=== PATIENT | female | born 1965 | race Caucasian/White ===

== ENCOUNTER 2017-02-20 08:05 | Day surgery (SDC) | payer BC, OTHER ==
[~2017-02-20] VITALS: Ht 165.1 cm; Wt 102.1 kg
[~2017-02-20 08:05] MED LIST: ALPR1TAB2 PO; ASPI1TAB30 PO; IV RINGERS,LACTATED 1000ML 1,000 ML IV SCH; LIDOCAINE 1% 1 ML SYRINGE. ID PRN; ONDANSETRON PF 4 MG/2 ML VIAL. IV PRN; OXYC-323 PO; PROCHLORPERAZINE 10 MG/2 ML VIAL. IV PRN; fentaNYL PF VIAL 100 MCG/2 ML VIAL IV PRN
[2017-02-20] MEDS ORDERED: BUPIVACAINE-EPI 0.25%-1:200000 50 ML VIAL. ONE (08:38)
[2017-02-20] MEDS ORDERED: HYDROmorphone 2 MG/ML VIAL ONE ×2 (09:09→12:16)
[2017-02-20] MEDS ORDERED: MIDAZOLAM HCL/PF 2 MG/2 ML VIAL. ONE (09:10)
[2017-02-20] MEDS ORDERED: ROCURONIUM 50 MG/5 ML VIAL. ONE (09:10)
[2017-02-20] MEDS ORDERED: ONDANSETRON PF 4 MG/2 ML VIAL. ONE (09:47)
[2017-02-20] MEDS ORDERED: DEXAMETHASONE SOD PHOS 20 MG/5 ML VIAL. ONE (09:47)
[2017-02-20] MEDS ORDERED: DESFLURANE 61 TO 120 MINUTES IH ONE (09:47)
[2017-02-20] MEDS ORDERED: PROPOFOL 20 ML IV ONE ×2 (09:47)
[2017-02-20] MEDS ORDERED: LIDOCAINE 1% PF 5 ML VIAL. ONE (09:47)
[2017-02-20] MEDS ORDERED: SEVOFLURANE > 120 MINUTES. IH ONE (09:48)
[2017-02-20] MEDS ORDERED: NEOSTIGMINE METHYLSULFATE 5 MG/5 ML SYRINGE. ONE (09:51)
[2017-02-20] MEDS ORDERED: GLYCOPYRROLATE 1 MG/5 ML VIAL. ONE (09:51)
[2017-02-20] MEDS ORDERED: ePHEDrine PF IN SALINE 50 MG/5 ML DISP.SYRIN IV ONE (09:57)
--- NOTE | 2017-02-20 12:01 | PDOC4 ---
Operative Note Operative Note Preoperative diagnosis: Incarcerated ventral hernia 2 Postoperative diagnosis: Incarcerated ventral hernia 3 Procedure: Robotic-assisted laparoscopic ventral hernia repair with mesh Surgeon: Td Anesthesia: GETA Estimated blood loss: 20 mL Specimen: None Procedure: Patient is a 51-year-old female with abdominal pain CT scan showing 2 ventral hernias. The procedure for ventral hernia repair robotic-assisted laparoscopic was explained to the patient detail all risks and benefits were also discussed including bleeding and/or infection as well as injury to intra- abdominal contents which were possibly necessitate further operations. The patient seemed understanding able verbal and written consent have procedure performed. Patient was taken to the operating room placed in the supine position general anesthesia was initiated once patient was sleeping and abated her abdomen was prepped and draped using sterile fashion using ChloraPrep. An area in the left upper quadrant was injected with quarter percent Marcaine with epinephrine incision was made lead blade scalpel and a Visiport was placed under direct visualization pneumoperitoneum was achieved. Once this was complete 5 mm camera was placed within the abdomen and the abdomen was inspected. Was noted that she had 3 ventral hernias all incarcerated with omentum. At this point 3 8 mm da Radha ports were placed under direct visualization. Surgery went to the robotic console using grasper and Endo Daniel scissors the omentum was reduced from all of the ventral hernias as well as adhesions taken down. The hernia defects were all closed with 2-0 the Lock nonabsorbable suture. Phasix mesh was used to cover the hernia defects this was sewn into place with 2-0 the lock absorbable suture. Once this was complete all ports removed and the pneumoperitoneum was reduced the skin incisions were all closed with 4-0 Monocryl subcuticular stitch mass all Steri-Strips as dressing. Patient was waken expanded operative technique and recovery in stable condition all sponges and needle counts listed as correct. Date: 02/20/2017 JOSE WEBB MD Feb 20, 2017 12:01
--- NOTE | 2017-02-20 12:06 | DISCH ---
DISCHARGE INSTRUCTIONS Condition on Discharge Condition on Discharge: Stable Activity After Discharge Activity Instructions for Disc: Avoid exertion Other activity instructions: No lifting >20lbs for 2 weeks Diet after Discharge Diet after Discharge: Regular Wound Incision Care Other wound/incision instructi: May shower in 24 hours Contacting the after DC Call your doctor for: If your condition worsens Follow-Up Follow up with: Dr Webb in 2 weeks JOSE WEBB MD Feb 20, 2017 12:06
[2017-02-20] MEDS: HYDROmorphone 2 MG/ML VIAL IV PRN ×4 (12:20→12:51)
[2017-02-20] MEDS ORDERED: oxyCODONE/APAP 5/325 1 TAB TABLET PO PRN (12:45)
[2017-02-20] MEDS ORDERED: HYDROmorphone 2 MG/ML VIAL IV PRN (13:30)
[2017-02-20 13:50] VITALS: BP 121/73
== END 2017-02-20 14:01 | disposition home or self-care (01) ==
LOC: SURG 08:05
PROVIDERS: ATTEND Surgery
DX: K43.6 Other and unspecified ventral hernia with obstruction, without gangrene (principal); I10 Essential (primary) hypertension; J44.9 Chronic obstructive pulmonary disease, unspecified; J45.909 Unspecified asthma, uncomplicated; Z90.49 Acquired absence of other specified parts of digestive tract; K21.9 Gastro-esophageal reflux disease without esophagitis; Z87.442 Personal history of urinary calculi; Z87.39 Personal history of other diseases of the musculoskeletal system and connective tissue; F41.9 Anxiety disorder, unspecified; D64.9 Anemia, unspecified; Z72.0 Tobacco use; Z88.1 Allergy status to other antibiotic agents; Z88.8 Allergy status to other drugs, medicaments and biological substances
CPT/HCPCS: 49653; C1781; J1100; J1170; J2250; J2405; J2704; J2710; J3490; J0780

== ENCOUNTER → 2017-10-15 | Outpatient (CLI) | payer BC ==
[~2017-10-15] MED LIST changes: -ALPR1TAB2 PO; -ASPI1TAB30 PO; +IOHEXOL 180 MG/ML 10 ML VIAL.; -IV RINGERS,LACTATED 1000ML 1,000 ML IV SCH; -LIDOCAINE 1% 1 ML SYRINGE. ID PRN; -ONDANSETRON PF 4 MG/2 ML VIAL. IV PRN; -OXYC-323 PO; -PROCHLORPERAZINE 10 MG/2 ML VIAL. IV PRN; -fentaNYL PF VIAL 100 MCG/2 ML VIAL IV PRN; +methylPREDNISolone ACETATE 40 MG/ML VIAL.; +methylPREDNISolone ACETATE 80 MG/ML VIAL.
== END | disposition home or self-care (01) ==
LOC: PNCL 07:29
DX: M51.16 Intervertebral disc disorders with radiculopathy, lumbar region (principal); M54.12 Radiculopathy, cervical region; I10 Essential (primary) hypertension; J45.909 Unspecified asthma, uncomplicated; Z90.49 Acquired absence of other specified parts of digestive tract; K21.9 Gastro-esophageal reflux disease without esophagitis; Z90.710 Acquired absence of both cervix and uterus; F41.0 Panic disorder [episodic paroxysmal anxiety]; F41.9 Anxiety disorder, unspecified; F17.210 Nicotine dependence, cigarettes, uncomplicated; D64.9 Anemia, unspecified
CPT/HCPCS: 62323; J1030; J1040; Q9965

== ENCOUNTER → 2017-10-23 | Outpatient (CLI) | payer BC | END | disposition home or self-care (01) | LOC: MRI 14:27 | DX: M51.16 Intervertebral disc disorders with radiculopathy, lumbar region (principal); M48.061 Spinal stenosis, lumbar region without neurogenic claudication | CPT/HCPCS: 72148 ==

== ENCOUNTER → 2017-10-29 | Outpatient (CLI) | payer BC | LOC: PNCL 08:44 | DX: M51.16 Intervertebral disc disorders with radiculopathy, lumbar region (principal); M50.10 Cervical disc disorder with radiculopathy, unspecified cervical region; Z88.1 Allergy status to other antibiotic agents; Z88.8 Allergy status to other drugs, medicaments and biological substances; Z88.5 Allergy status to narcotic agent; Z79.899 Other long term (current) drug therapy; Z79.82 Long term (current) use of aspirin | CPT/HCPCS: 62323; J1030; J1040; Q9965 ==

== ENCOUNTER → 2017-12-25 | Outpatient (CLI) | payer BC, MEDICARE | END | disposition home or self-care (01) | LOC: US 12:44 | DX: I65.23 Occlusion and stenosis of bilateral carotid arteries (principal); R09.89 Other specified symptoms and signs involving the circulatory and respiratory systems | CPT/HCPCS: 93880 ==

== ENCOUNTER → 2018-04-21 | Outpatient (CLI) | payer BC ==
[2018-01-23 11:00] VITALS: BP 105/54
[~2018-04-21] MED LIST changes: +ALPR1TAB2 PO; +ASPI-612 PO; +ASPI1TAB31 PO; +HYDR-2762 PO; +IBUP-1060 PO; -IOHEXOL 180 MG/ML 10 ML VIAL.; +IOHEXOL 180 MG/ML 10 ML VIAL. ONE; +LIDOCAINE 2% PF 2ML VIAL. ONE; +METO25TA4 PO; +OXYC-323 PO; +PROAIR HFA8.5 GM INH; +Pantoprazole PO; -methylPREDNISolone ACETATE 40 MG/ML VIAL.; +methylPREDNISolone ACETATE 40 MG/ML VIAL. ONE; -methylPREDNISolone ACETATE 80 MG/ML VIAL.; +methylPREDNISolone ACETATE 80 MG/ML VIAL. ONE
--- NOTE | 2018-04-21 22:49 | PAIN ---
DATE OF SERVICE: 04/21/2018 DIAGNOSES: 1. Lumbar radiculopathy with lumbar degenerative disk disease. 2. Cervicalgia with cervical radiculopathy. HISTORY OF PRESENT ILLNESS: The patient is a 53-year-old female, who returns for followup status post lumbar epidural steroid injection x 2, last seen 10/29/2017. The patient reports she did very well with this with about 98% improvement until about 6-7 weeks ago, patient reports pain began to return in the low back, bilateral lower extremities, somewhat worse on the right than the left and the right posterior gluteus, posterior thighs, posterior calves bilaterally, again worse on the right side, some in the anterior thigh as well. The patient reports it is a 10 on a scale of 10 at its worst, 9 on average, 8 at its least, and is a 9 today. The patient reports no new motor or sensory deficits. No new bowel or bladder incontinence, but still significant pain in the low back and bilateral lower extremities. The patient reports it is aching, sharp, shooting, stabbing, burning, becoming more constant, more severe and more unbearable, worse with walking, standing, changing positions, better with sitting down or lying down. She initially was increasing her distances walking, better activity with household and work activities, better tolerances with the activity without difficulty. The patient reports she is sleeping well at night, now is beginning to awaken her again from sleep. PHYSICAL EXAMINATION: VITAL SIGNS: The patient's blood pressure is 149/105, pulse 75, respirations 18, temperature 98.2 degrees Fahrenheit, height is 5 feet 5 inches, weight is 232 pounds. GENERAL: The patient is awake, alert, oriented, appropriate, very pleasant demeanor. HEENT: Shows normocephalic, atraumatic. Extraocular movements are intact and symmetrical. Oral cavity: Mucous membranes moist and pink. Dentition is intact. NECK: Shows anterior throat supple without palpable lymphadenopathy noted. Swallow reflex is symmetrical. Neck shows full rotational motion of the cervical spine without difficulty. CHEST: Shows normal on inspection. Breath sounds are clear to auscultation bilaterally. HEART: Shows S1, S2 clear. No murmurs auscultated. ABDOMEN: Soft, nontender, nondistended. No palpable organomegaly. There is no rebound or guarding demonstrated. BACK: Shows spine grossly in the midline. Normal appearing thoracic kyphosis and lumbar lordotic curvature. The patient's lumbar paraspinous muscle shows symmetrical on inspection. On palpation shows some moderate tenderness diffusely in the inferior aspect of the paraspinous musculature in the low lumbar distribution, but only diffusely bilaterally without radiation, without asymmetry or trigger points. The patient has good rotational motion of lumbar spine, both laterally as well as extension and flexion without difficulty. EXTREMITIES: Lower extremities show deep tendon reflexes at 2+ in the patellar, 1+ tendo calcaneus tendon. Motor exam is strong with 5/5 dorsiflexion, extension, quadricep and hamstring flexion and equal. Peripheral pulses are 1+ posterior tibia. No peripheral edema is noted bilaterally. Options were discussed with the patient. The patient's old chart was reviewed as her current medication regimen updated. Current review of systems is updated today as well. We will proceed with a lumbar epidural steroid injection today with fluoroscopic guidance, is the first in this series. Risks were again discussed including, but not limited to bleeding, infection, possibility of epidural hematoma, subsequent neurologic compromise, dural puncture, headaches, spinal cord and/or nerve damage, side effects of steroid medication and poor results regarding pain control. The patient understands and wished to proceed. The patient will return to the clinic in approximately 2 weeks for followup, was counseled on return appointment, activity level and side effects to be aware of. DIAGNOSIS: Lumbar radiculopathy with lumbar degenerative disk disease. PROCEDURE: Lumbar epidural steroid injection, translaminar approach at the L5-S1 level using C-arm fluoroscopic guidance under sterile prep and drape using local anesthetic. MEDICATION INJECTED: A total of 120 mg of Depo-Medrol plus 10 mL of preservative-free normal saline and 2 mL of Isovue for contrast. CONDITION AT DISCHARGE: Stable. The patient tolerated the procedure well, had no complications. OLE TELLO MD DR: JAZIEL/tai JOB#: [id number] / [id number]
== END | disposition home or self-care (01) ==
LOC: PNCL 12:49
PROVIDERS: ATTEND Anesthesiology
DX: M51.16 Intervertebral disc disorders with radiculopathy, lumbar region (principal); F41.9 Anxiety disorder, unspecified; J44.9 Chronic obstructive pulmonary disease, unspecified; I10 Essential (primary) hypertension; K21.9 Gastro-esophageal reflux disease without esophagitis; E78.5 Hyperlipidemia, unspecified; M19.90 Unspecified osteoarthritis, unspecified site; F32.9 Major depressive disorder, single episode, unspecified; F17.210 Nicotine dependence, cigarettes, uncomplicated; Z90.49 Acquired absence of other specified parts of digestive tract; Z88.5 Allergy status to narcotic agent; Z88.1 Allergy status to other antibiotic agents; Z79.1 Long term (current) use of non-steroidal anti-inflammatories (NSAID); Z79.899 Other long term (current) drug therapy; Z79.82 Long term (current) use of aspirin; Z90.710 Acquired absence of both cervix and uterus; Z88.8 Allergy status to other drugs, medicaments and biological substances
CPT/HCPCS: 62323; J1030; J1040; J2001; Q9965

== ENCOUNTER → 2018-09-28 | Outpatient (CLI) | payer BC ==
[2018-01-23 11:00] VITALS: BP 105/54
[~2018-09-28] MED LIST changes: +ALBU2.5V8 INH; -HYDR-2762 PO; +HYDR-2765 PO; -IOHEXOL 180 MG/ML 10 ML VIAL. ONE; -LIDOCAINE 2% PF 2ML VIAL. ONE; -OXYC-323 PO; +OXYC1TAB15 PO; -PROAIR HFA8.5 GM INH; -methylPREDNISolone ACETATE 40 MG/ML VIAL. ONE; -methylPREDNISolone ACETATE 80 MG/ML VIAL. ONE
--- NOTE | 2018-09-28 10:00 | PAIN ---
DATE OF SERVICE: 09/28/2018 DIAGNOSES: Lumbar radiculopathy with lumbar degenerative disk disease. HISTORY OF PRESENT ILLNESS: The patient is a 53-year-old female who returns for followup status post lumbar epidural steroid injections x 3, last seen on 04/21/2018. The patient reports she did fairly well after the last injection, about 80-90% improvement that lasted several months. The patient reports that the pain is returning now over the past 2 or 3 months, increased pain across the low back bilaterally, into the right posterior gluteus, posterior thigh radiating, also pain in the knees. The patient reports it is burning, stabbing, aching, sharp, radiating, becoming more constant, more severe and nonbearable, difficulty with walking, difficulty with changing positions, even walking from her car into a store. She has been needing shopping carts to lean on and take the pressure off her back, is having difficulty sleeping, only sleeps about 2-3 hours at a time. The pain does awaken her from sleep. The patient reports initially she was doing very well with distance Walking, doing work activities, household activities, traveling much greater ease and comfort, now the pain is returning significantly in the past few months. The patient rates it as 10 on a scale of 10 at its worst, 9 on average, 6 at its least and 9 today ____. No significant radiation to the left lower extremity. The right lower extremity is significantly painful as noted. The patient reports no new motor or sensory deficits, no new bowel or bladder incontinence. PHYSICAL EXAMINATION: VITAL SIGNS: Blood pressure is 163/99, pulse is 75, respirations 18, temperature 98.1 degrees Fahrenheit. Height is 5 feet 5 inches, weight is 241 pounds. GENERAL: The patient is awake, alert, oriented, appropriate, very pleasant demeanor. HEENT: Head shows normocephalic, atraumatic. Extraocular movements are intact and symmetrical. Oral cavity, mucous membranes are moist and pink. Dentition is intact. NECK: Shows anterior throat supple without palpable lymphadenopathy noted. Swallow reflex is symmetrical. CHEST: Shows normal on inspection. Breath sounds clear to auscultation bilaterally. HEART: Shows S1, S2 clear. No murmurs auscultated. ABDOMEN: Soft, nontender, nondistended. No palpable organomegaly is noted. No rebound or guarding demonstrated. BACK: Shows spine grossly in the midline. Normal-appearing thoracic kyphosis and lumbar lordotic curvature. Lumbar paraspinous muscle shows symmetrical on inspection. On palpation, it shows some moderate tenderness diffusely throughout the upper, middle and lower distribution of paraspinous musculature bilaterally without radiation. The patient shows good rotational motion of lumbar spine, both laterally as well as extension and flexion without significant difficulty. EXTREMITIES: Lower extremity deep tendon reflexes at 2+ patellar, 1+ tendo-calcaneus tendons. Motor exam is strong with 5/5 dorsiflexion, extension, quadriceps and hamstring flexion and symmetrical. Peripheral pulses are 1+ posterior tibial. No peripheral edema is noted bilaterally. Options were discussed with the patient. The patient's old chart was reviewed as was current medication regimen updated. Current review of systems updated today as well. We will proceed with a lumbar epidural steroid injection today with fluoroscopic guidance. Risks were again discussed including, but not limited to bleeding, infection, possibility of epidural hematoma and subsequent neurological compromise, dural puncture, headaches, spinal cord and/or nerve damage, side effects of steroid medication and poor results regarding pain control. The patient understands and wished to proceed. The patient to return to clinic in approximately 2 weeks for followup. She was counseled as to return appointment, activity level and side effects to be aware of. DIAGNOSIS: Lumbar radiculopathy with lumbar degenerative disk disease. PROCEDURE: Lumbar epidural steroid injection, translaminar approach at L5-S1 level using C-arm fluoroscopic guidance under sterile prep and drape using local anesthetic. MEDICATION INJECTED: A total of 120 mg Depo-Medrol plus 10 mL of preservative-free normal saline and 2 mL of Isovue for contrast. CONDITION AT DISCHARGE: Stable. The patient tolerated the procedure well, had no complications. OLE TELLO MD DR: JAZIEL/tai JOB#: [id number] / [id number]
== END | disposition home or self-care (01) ==
LOC: PNCL 07:30
PROVIDERS: ATTEND Anesthesiology
DX: M51.16 Intervertebral disc disorders with radiculopathy, lumbar region (principal); Z88.1 Allergy status to other antibiotic agents; Z88.6 Allergy status to analgesic agent; Z88.5 Allergy status to narcotic agent; Z88.8 Allergy status to other drugs, medicaments and biological substances
CPT/HCPCS: 62323; Q9965

== ENCOUNTER → 2021-04-05 | Outpatient (CLI) | payer BC ==
[2018-01-23 11:00] VITALS: BP 105/54
[~2021-04-05] MED LIST changes: -ASPI-612 PO; +ASPI-886 PO; +IOHEXOL 180 MG/ML 10 ML VIAL. ONE; +methylPREDNISolone ACETATE 80 MG/ML VIAL. ONE
--- NOTE | 2021-04-05 16:47 | PDOC ---
Progress Note - Pain Clinic Date of Service: DOS: DATE: 04/05/21 TIME: 16:44 Diagnosis: Dx: Lumbar radiculopathy with lumbar degenerative disc disease Cervicalgia with cervical radiculopathy History or Present Illness: HPI: 56-year-old female returns for follow-up last seen 2018 patient had undergone lumbar epidural steroid injection at that time did very well with pain in her low back and right leg patient reports that she did well near 80% improvement for several months and then down to about a 50% improvement for about 6 months after that patient reports that she is been putting off coming back for a while now because the pain is getting worse in the low back now more in bilateral lower extremities which is new generally was just in the right side but now is in both legs posterior gluteus posterior lateral thigh lateral anterior thigh and anterior medial thigh medial lower legs to the ankles worse on the right than the left and present bilaterally also pain in the mid back and some in the upper back as well patient reports is a 10 on scale 10 is worst average and 8 its least is described as aching and sharp radiating constant can be severe and unbearable worse with walking standing changing positions has been waking her from sleep about every 3-4 hours now as well. Patient reports no loss of motor function no bowel or bladder incontinence. Physical Exam: VS: Blood pressure is 179/86 pulse 63 respirations 18 temperature 98.7 F height is 5 feet 5 inches weight is 199 pounds PE: PHYSICAL EXAMINATION: GENERAL: The patient is awake, alert, oriented, appropriate, very pleasant in demeanor. HEENT: Shows normocephalic, atraumatic. Extraocular movements are intact and symmetrical. Oral cavity: Mucous membranes moist and pink. Dentition is intact. NECK: Shows anterior throat supple without palpable lymphadenopathy noted. Swallow reflex symmetrical. CHEST: Shows normal on inspection. Breath sounds are clear bilaterally, no rales rhonchi or wheezes auscultated. HEART: Shows S1, S2 clear. No murmurs auscultated. ABDOMEN: Soft, nontender, nondistended. No palpable organomegaly is noted. BACK: Shows spine grossly in the midline. Normal-appearing cervical lordotic curvature. There is slightly increased thoracic kyphosis, some minor flattening of the lumbar lordotic curvature. Lumbar paraspinous muscles show symmetrical on inspection, on palpation shows some moderate tenderness diffusely throughout the upper, middle and lower distribution of the paraspinous muscles without specific trigger points, without radiation of pain. The patient has good rotational motion of the lumbar spine, both laterally as well as extension and flexion without significant difficulty. No tenderness over the spinous processes, sacrum or sacroiliac regions. EXTREMITIES: Lower extremities show deep tendon reflexes 2+ in the patellar and tendo calcaneus tendons. Motor exam is 5 on a scale of 5 with right dorsiflexion, extension, quadriceps and hamstring flexion and 5/5 on the left. Peripheral pulses are 1+ posterior tibial. No peripheral edema is noted bilaterally. Lower extremities are warm and dry to touch, equal in color and appearance. SKIN: Shows warm and dry, good turgor. No edema. No sores, rashes or bruising throughout. Procedure: Procedure: Options were discussed with patient. Patient chart was reviewed as her current medication regimen updated current review of systems updated today as well. We will proceed with a lumbar epidural steroid injection today with fluoroscopic guidance. Risks were discussed including but not limited to: Bleeding, infection, possibility of epidural hematoma and subsequent neurological compromise, dural puncture, headaches, spinal cord and/or nerve damage, side effects of steroid medication, and poor results regarding pain control. Patient understands and wished to proceed. Patient will return to the clinic in approximately 2 weeks for follow-up, was counseled as return appointment activity level and side effects to be aware of. Medication Injected: Med Injected: Procedure is lumbar epidural steroid injection under local anesthetic using sterile prep and drape at the L4-5 level using C-arm fluoroscopic guidance in both AP and lateral views medications injected is 120 mg Depo-Medrol +10mL preservative-free normal saline and 2 mL contrast- condition at discharge is stable patient tolerated procedure well had no complications. Condition at Discharge: Condition at Discharge: Condition at discharge stable, pain tolerated procedure well and had no complications. OLE TELLO MD Apr 05, 2021 16:47
--- NOTE | 2021-04-05 16:48 | PDOC4 ---
Procedure Note: ICD 10 Code: ICD 10 Code: M 54.16 M 51.36 Procedure Note: Patient was consented for lumbar epidural steroid injection with fluoroscopic guidance. Risks were discussed including but not limited to: Bleeding, infection, possibility of epidural hematoma and subsequent neurological compromise, dural puncture, headaches, spinal cord and/or nerve damage, side effects of steroid medication, and poor results regarding pain control. Patient understands and wished to proceed. Procedure is lumbar epidural steroid injection under local anesthetic using sterile prep and drape at the L4 5 level using C-arm fluoroscopic guidance in both AP and lateral views medications injected is 120 mg Depo-Medrol +10mL preservative-free normal saline and 2 mL contrast- condition at discharge is stable patient tolerated procedure well had no complications. OLE TELLO MD Apr 05, 2021 16:48
== END ==
LOC: PNCL 14:58
PROVIDERS: ATTEND Anesthesiology
DX: M51.16 Intervertebral disc disorders with radiculopathy, lumbar region (principal)
CPT/HCPCS: 62323; J1040; Q9965

== ENCOUNTER → 2021-04-24 | Outpatient (CLI) | payer BC ==
[2018-01-23 11:00] VITALS: BP 105/54
[~2021-04-24] MED LIST changes: -IOHEXOL 180 MG/ML 10 ML VIAL. ONE; -methylPREDNISolone ACETATE 80 MG/ML VIAL. ONE
--- NOTE | 2021-04-24 15:30 | KCIC ---
EXAM: Lumbar spine MRI without contrast. HISTORY: Lumbar radiculopathy. Right hip pain. TECHNIQUE: Multiplanar, multisequence magnetic resonance imaging of the lumbar spine was performed wi thout contrast. COMPARISON: 10/23/2017. FINDINGS: There is mild lumbar scoliosis and hyperlordosis. There is 5 mm grade 1 anterolisthesis of L4 and L5 and 2 mm grade 1 anterolisthesis of L3 on L4. There is multilevel endplate remodeling. Ther e are few endplate Schmorl's nodes. There are few osseous hemangiomas. There is no suspicious osseous lesion. There is no acute or subacute fracture. The conus terminates at L1. There is slight incident al nodular thickening of the left adrenal gland. No discrete lesion is seen. At L1-L2, there is no stenosis. At L2-L3, there is a disc bulge and endplate remodeling. There is no stenosis. At L3-L4, there is a broad-based shallow left foraminal to extraforaminal disc protrusion superimpose d on a disc bulge and endplate remodeling. There is mild to moderate bilateral facet arthropathy. The re is minimal grade 1 anterolisthesis. There is mild left foraminal stenosis with abutment of the exi ting left L3 nerve root. At L4-L5, there is a left foraminal disc protrusion and annular tear superimposed on a disc bulge and endplate remodeling. There is also a broad-based right paracentral to lateral recess disc protrusion . There is moderate right and severe left facet arthropathy. There is grade 1 anterolisthesis. There is mild left foraminal stenosis with abutment of the exiting left L4 nerve root. There is moderate ce ntral canal stenosis. At L5-S1, there is a disc bulge and endplate remodeling. There is mild right and moderate to severe l eft facet arthropathy. There is mild narrowing of the left lateral recess. IMPRESSION: 1. Multilevel degenerative change involving the lumbar spine, described in detail above. This is asso ciated with mild left foraminal stenosis and abutment of the exiting left L3 nerve root at L3-L4, mil d left foraminal stenosis with abutment of the exiting left L4 nerve root and moderate central canal stenosis at L4-5, and mild narrowing of the left lateral recess at L5-S1. 2. Grade 1 anterolisthesis of L4 on L5, and to a lesser extent, L3 on L4. This is superimposed on mil d lumbar scoliosis and hyperlordosis. Electronically signed by: Claudia Ramirez MD (04/24/2021 3:27 PM) [id number]
== END | disposition home or self-care (01) ==
LOC: KCIC MRI 13:03
PROVIDERS: ATTEND Anesthesiology
DX: M54.16 Radiculopathy, lumbar region (principal); M25.551 Pain in right hip; M48.061 Spinal stenosis, lumbar region without neurogenic claudication; I10 Essential (primary) hypertension; E78.00 Pure hypercholesterolemia, unspecified; J44.9 Chronic obstructive pulmonary disease, unspecified; K21.9 Gastro-esophageal reflux disease without esophagitis; F41.9 Anxiety disorder, unspecified; F32.9 Major depressive disorder, single episode, unspecified; F17.210 Nicotine dependence, cigarettes, uncomplicated; Z90.710 Acquired absence of both cervix and uterus; Z98.890 Other specified postprocedural states; Z79.82 Long term (current) use of aspirin; Z79.899 Other long term (current) drug therapy; Z88.8 Allergy status to other drugs, medicaments and biological substances
CPT/HCPCS: 72148

== ENCOUNTER → 2021-05-10 | Outpatient (CLI) | payer BC ==
[2018-01-23 11:00] VITALS: BP 105/54
--- NOTE | 2021-05-10 17:05 | KCIC ---
Bilateral digital screening mammograms: Reason for examination: Routine screening. There are no prior studies available for comparison. Patient does not recall location of her previous mammogram. Interpretation was made with the benefit of CAD. Findings: Breast density: Category B. There are scattered fibroglandular densities.. There is no suspicious mass, malignant appearing calcifications or architectural distortion is seen. Impression: Negative bilateral mammogram. Assessment: BI-RADS Category 1: Negative. Recommendation: Routine annual mammograms. This patient's information has been entered into a reminder system for the patient to be notified wit h the results of her examination and a target date for the next mammogram. Electronically signed by: Shira Montenegro MD (05/10/2021 5:02 PM) [id number]
== END ==
LOC: KCIC MAMMO 13:49
PROVIDERS: ATTEND Family Medicine
DX: Z12.31 Encounter for screening mammogram for malignant neoplasm of breast (principal)
CPT/HCPCS: 77067

== ENCOUNTER → 2021-06-27 | Outpatient (CLI) | payer BC ==
[2018-01-23 11:00] VITALS: BP 105/54
[~2021-06-27] MED LIST changes: +IOHEXOL 180 MG/ML 10 ML VIAL. ONE; +methylPREDNISolone ACETATE 40 MG/ML VIAL. ONE; +methylPREDNISolone ACETATE 80 MG/ML VIAL. ONE
--- NOTE | 2021-06-27 16:20 | PDOC ---
Progress Note - Pain Clinic Date of Service: DOS: DATE: 06/27/21 TIME: 16:17 Diagnosis: Dx: Lumbar radiculopathy with lumbar degenerative disc disease Cervical radiculopathy with cervicalgia History or Present Illness: HPI: 56-year-old female returns for follow-up last seen April 05, 2021 patient doing very well after epidural steroid injection about 50% improved. Patient had new MRI scan which we had ordered on her last visit and we discussed that with her in detail today showing some significant findings L3-4 and L4-5 with broad-based shallow left foraminal dextran 1 disc retrusion at L3-4 and left foraminal disc protrusion and superimposed disc bulge at L4-5 with broad-based right paracentral to lateral recess disc protrusion as well. Patient reports after the first 3 weeks she is doing much better increased activity greater ease and comfort walking greater distances doing household activities traveling with greater ease and comfort sleeping better now the pain is returning in the low back and the right lower extremity posterior gluteus lateral thigh anterior thigh medial thigh as well as some on the left but the left side is much better than it was previously this was much more painful on her last visit patient reports pain is in the back as well radiating severe into the leg mostly on the right side can be unbearable at times aching sharp and shooting in the back radiating and stabbing in the leg patient reports waking her from sleep about every 3-4 hours original she was doing much better without any disturbances with sleeping patterns. Patient reports no bowel or bladder incontinence. Physical Exam: VS: Blood pressure 152/86 pulse 69 respirations 18 temperature 98.2 F height 5 feet 5 inches weight 205 pounds. PE: PHYSICAL EXAMINATION: GENERAL: The patient is awake, alert, oriented, appropriate, very pleasant in demeanor HEENT: Shows normocephalic, atraumatic. Extraocular movements are intact and symmetrical. Oral cavity: Mucous membranes moist and pink. Dentition is intact. NECK: Shows anterior throat supple without palpable lymphadenopathy noted. Swallow reflex symmetrical. CHEST: Shows normal on inspection. Breath sounds are clear bilaterally, distant but no rales or rhonchi or wheezes. HEART: Shows S1, S2 clear. No murmurs auscultated. ABDOMEN: Soft, nontender, nondistended, obese. No palpable organomegaly is noted. BACK: Shows spine grossly in the midline. Normal-appearing cervical lordotic curvature. There is increased thoracic kyphosis, some flattening of the lumbar lordotic curvature. Lumbar paraspinous muscles show symmetrical on inspection, on palpation shows some moderate tenderness diffusely throughout the upper, middle and lower distribution of the paraspinous muscles without specific trig kenny points, without radiation of pain. The patient has good rotational motion of the lumbar spine, both laterally as well as extension and flexion without significant difficulty. No tenderness over the spinous processes, sacrum or sacroiliac regions. EXTREMITIES: Lower extremities show deep tendon reflexes 2+ in the patellar and tendo calcaneus tendons. Motor exam is 5 on a scale of 5 with right dorsiflexion, extension, quadriceps and hamstring flexion and 5/5 on the left. Peripheral pulses are 1+ posterior tibial. No peripheral edema is noted bilaterally. Lower extremities are warm and dry. SKIN: Shows warm and dry, good turgor. No edema. No sores, rashes or bruising throughout. Procedure: Procedure: Options discussed with the patient. Patient chart reviews her current medication regimen updated current review of systems updated today as well. We will proceed with a lumbar epidural steroid injection today with fluoroscopic guidance. Risks were discussed including but not limited to: Bleeding, infection, possibility of epidural hematoma and subsequent neurological compromise, dural puncture, headaches, spinal cord and/or nerve damage, side effects of steroid medication, and poor results regarding pain control. Patient understands and wished to proceed. Patient will return to clinic in approximate 2 weeks for follow-up, was counseled as return appointment, typical, and side effects to be aware of. Medication Injected: Med Injected: Procedure is lumbar epidural steroid injection under local anesthetic using sterile prep and drape at the L4-5 level using C-arm fluoroscopic guidance in both AP and lateral views medications injected is 120 mg Depo-Medrol +10mL preservative-free normal saline and 2 mL contrast- condition at discharge is stable patient tolerated procedure well had no complications. Condition at Discharge: Condition at Discharge: Condition at discharge stable, patient tolerated procedure well and had no complications. OLE TELLO MD Jun 27, 2021 16:20
--- NOTE | 2021-06-27 16:21 | PDOC4 ---
Procedure Note: ICD 10 Code: ICD 10 Code: M54.17 M51.87 Procedure Note: Patient was consented for lumbar epidural steroid injection with fluoroscopic guidance. Risks were discussed including but not limited to: Bleeding, infection, possibility of epidural hematoma and subsequent neurological compromise, dural puncture, headaches, spinal cord and/or nerve damage, side effects of steroid medication, and poor results regarding pain control. Patient understands and wished to proceed. Procedure is lumbar epidural steroid injection under local anesthetic using sterile prep and drape at the L4-5 level using C-arm fluoroscopic guidance in both AP and lateral views medications injected is 120 mg Depo-Medrol +10mL preservative-free normal saline and 2 mL contrast- condition at discharge is stable patient tolerated procedure well had no complications. OLE TELLO MD Jun 27, 2021 16:21
== END | disposition home or self-care (01) ==
LOC: PNCL 15:01
PROVIDERS: ATTEND Anesthesiology
DX: M51.16 Intervertebral disc disorders with radiculopathy, lumbar region (principal); M54.2 Cervicalgia; I10 Essential (primary) hypertension; E78.00 Pure hypercholesterolemia, unspecified; J44.9 Chronic obstructive pulmonary disease, unspecified; K21.9 Gastro-esophageal reflux disease without esophagitis; F41.9 Anxiety disorder, unspecified; F32.9 Major depressive disorder, single episode, unspecified; F17.210 Nicotine dependence, cigarettes, uncomplicated; Z79.82 Long term (current) use of aspirin; Z79.899 Other long term (current) drug therapy; Z90.49 Acquired absence of other specified parts of digestive tract; Z90.710 Acquired absence of both cervix and uterus; Z98.890 Other specified postprocedural states; Z88.1 Allergy status to other antibiotic agents; Z88.6 Allergy status to analgesic agent; Z88.8 Allergy status to other drugs, medicaments and biological substances
CPT/HCPCS: 62323; J1030; J1040; Q9965